=== PATIENT | female | born 1975 | race Caucasian/White ===

== ENCOUNTER 2023-04-28 11:07 | Outpatient (OUT) | payer BC, SELFPAY ==
--- NOTE | 2023-04-28 11:19 | XR_ITS ---
The [address] [address] Patient Name: KERVIN ORDAZ MRN: [id number] date: 1975 Sex: F Assigned Patient Location: [facility] Current Patient Location: [facility] Accession/Order Number: [id number] Exam Date: 04/28/2023 11:35 Report Date: 04/28/2023 12:03 At the request of: LEONARD HANSEN Procedure: XR chest 2V PROCEDURE: XR chest 2V DATE: 04/28/2023 10:35 AM CDT COMPARISONS: None. CLINICAL INDICATION: 47 years Female Painful Breathing, Right Sided Thoracic Back Pain FINDINGS: The cardiomediastinal silhouette and pulmonary vasculature are within normal limits. The lungs are clear. There is no evidence of pleural effusion or pneumothorax. XR/XR chest 2V IMPRESSION: Chest radiograph is within normal limits. Electronically authenticated by: LUCRETIA GILES Date: 04/28/2023 12:03
== END 2023-04-28 11:08 | disposition home or self-care (01) ==
LOC: RAD 11:11
PROVIDERS: PCP Nurse Practitioner Family; Visit Provider Nurse Practitioner Family
DX: R07.1 Chest pain on breathing (principal); M54.6 Pain in thoracic spine; R10.9 Unspecified abdominal pain
CPT/HCPCS: 71046

== ENCOUNTER 2023-04-29 15:27 | Outpatient (OUT) | payer BC, SELFPAY ==
--- NOTE | 2023-04-29 15:32 | US_ITS ---
[address] [address] Patient Name: KERVIN ORDAZ MRN: [id number] date: 1975 Sex: F Assigned Patient Location: [place] Current Patient Location: Accession/Order Number: [id number] Exam Date: 04/29/2023 15:35 Report Date: 04/30/2023 07:03 At the request of: LEONARD HANSEN Procedure: US right upper quadrant EXAM: US right upper quadrant HISTORY: painful breathing R07.1, Right sided abdominal pain R10.9 COMPARISON: None. TECHNIQUE: Grayscale, color and Doppler FINDINGS: The liver is normal in size, contour and echotexture. The liver measures 15.9 cm in length. Hepatopedal flow in the main portal vein with velocity of 30 cm/s. No focal hepatic mass. The gallbladder is normal. The wall measures 1.6 mm. Negative sonographic Handy sign. No cholelithiasis or gallbladder sludge The common bile duct measures 7.1 mm, mildly dilated. No focal obstruction The visualized pancreas is normal The right kidney is normal measuring 12.6 x 4.1 x 3.6 cm. No free fluid US/US right upper quadrant IMPRESSION: Mild dilation of the common bile duct with no obstruction Normal gallbladder Electronically authenticated by: CATRINA NATH Date: 04/30/2023 07:03
== END 2023-04-29 15:28 | disposition home or self-care (01) ==
LOC: US 15:28
PROVIDERS: PCP Nurse Practitioner Family; Visit Provider Nurse Practitioner Family
DX: R07.1 Chest pain on breathing (principal); R10.9 Unspecified abdominal pain
CPT/HCPCS: 76705